=== PATIENT | male | born 1995 | race Caucasian/White ===

== ENCOUNTER 2025-04-12 00:06 | Emergency (ER) | payer SELFPAY ==
[~2025-04-12] VITALS: Ht 172.7 cm; Wt 79.0 kg
[2025-04-12 00:22] VITALS: O2SAT 99
[2025-04-12 00:24] VITALS: BP 156/93; PULSE 75; RESP 16; TEMP 36.7; O2SAT 99
[2025-04-12] MEDS: IBUPROFEN 400MG TABLET PO ONE (02:12)
[2025-04-12] MEDS: TETANUS, DIPHTHERIA, PERTUSSIS VAC/PF 0.5ML (>10YR OLD) IM ONE (02:15)
[2025-04-12] MEDS ORDERED: BO1 TP (03:17)
[2025-04-12] MEDS ORDERED: CEPH500C2 MT (03:17)
== END 2025-04-12 03:34 | disposition home or self-care (01) ==
LOC: ER 00:06
DX: M79.644 Pain in right finger(s) (principal); Z79.899 Other long term (current) drug therapy
CPT/HCPCS: 73140; 90715; 90471; 99283; Z7610